=== PATIENT | female | born 1980 | race Hispanic/Latino ===

== ENCOUNTER 2020-10-13 10:04 | Day surgery (SDC) | payer BC ==
[2020-10-12 16:37] LABS: BASOPHILS % (AUTO) 0.6 % (0.0-5.0); EOSINOPHILS % (AUTO) 1.3 % (0.0-8.0); HEMATOCRIT 36.6 % (36-48); LYMPHOCYTES % (AUTO) 39.7 % (21.0-51.0); MEAN CORPUSCULAR HEMOGLOBIN 28.5 pg (27.0-33.0); MEAN CORPUSCULAR HGB CONC 32.8 g/dL (32.0-36.0); MEAN CORPUSCULAR VOLUME 86.9 fL (79-99); MONOCYTES % (AUTO) 7.3 % (3.0-13.0); NEUTROPHILS % (AUTO) 50.8 % (40.0-77.0); PLATELET COUNT (AUTO) 323 K/uL (130-400); RED BLOOD CELL COUNT(AUTO) 4.21 MIL/uL (4.00-5.50); RED CELL DISTRIBUTION WIDTH 15.1 % (11.0-15.5); WHITE BLOOD COUNT (AUTO) 6.9 K/uL (4.8-10.8)
[~2020-10-13] VITALS: Ht 154.9 cm; Wt 69.0 kg
[2020-10-13] VITALS (16 sets, daily range): BP systolic 109–131; BP diastolic 66–90
[2020-10-13] MEDS ORDERED: CALDOLOR 800MG+NS 250ML 250 ML IV ONE (10:12)
[2020-10-13] MEDS ORDERED: LACTATED RINGERS 1000ML 1,000 ML IV ONE (10:13)
[2020-10-13] MEDS ORDERED: CEFAZOLIN SODIUM 1 GM VIAL ONE (10:16)
[2020-10-13] MEDS ORDERED: SUCCINYLCHOLINE CHLORIDE 20 MG/ML 10 ML VIAL ONE (11:17)
[2020-10-13] MEDS ORDERED: LIDOCAINE PF 100MG/5ML (2%) SYRINGE 5ML ONE (11:17)
[2020-10-13] MEDS ORDERED: PROPOFOL 10 MG/ML 20ML VIAL IV ONE (11:18)
[2020-10-13] MEDS ORDERED: MIDAZOLAM HCL 1 MG/ML 2ML VIAL ONE (11:18)
[2020-10-13] MEDS ORDERED: NEOSTIGMINE 5MG/5ML SYR IV ONE (11:18)
[2020-10-13] MEDS ORDERED: GLYCOPYRROLATE 1 MG/5 ML SYRINGE ONE (11:18)
[2020-10-13] MEDS ORDERED: ROCURONIUM 10MG/1ML SYR 10 MG/ML ML ONE (11:18)
[2020-10-13] MEDS ORDERED: DEXAMETHASONE SOD PHOSPHATE 10MG/ML 1ML VIAL ONE (11:18)
[2020-10-13] MEDS ORDERED: ONDANSETRON HCL 4 MG/2 ML VIAL ONE (11:18)
[2020-10-13] MEDS ORDERED: FENTANYL CITRATE PF 50 MCG/1 ML 2ML VIAL ONE ×2 (11:19→11:50)
[2020-10-13] MEDS ORDERED: NALOXONE HCL 0.4 MG/1 ML ML ONE (11:58)
== END 2020-10-13 13:50 | disposition home or self-care (01) ==
LOC: DAH 10:04
PROVIDERS: ATTEND Obstetrics & Gynecology
DX: N92.0 Excessive and frequent menstruation with regular cycle (principal); Z20.822 Contact with and (suspected) exposure to COVID-19; N81.4 Uterovaginal prolapse, unspecified; G43.909 Migraine, unspecified, not intractable, without status migrainosus; F41.9 Anxiety disorder, unspecified; Z90.49 Acquired absence of other specified parts of digestive tract; Z98.51 Tubal ligation status; Z80.3 Family history of malignant neoplasm of breast; Z83.3 Family history of diabetes mellitus; Z82.49 Family history of ischemic heart disease and other diseases of the circulatory system; Z98.890 Other specified postprocedural states
CPT/HCPCS: 36415; 58563; 85025; 86850; 86900; 86901; 87635; A4215; A4216; A4221; A4222; A4223 ×2; A4351; A4355; A4663; A6260; C9803; J0330; J0690; J1100; J1741; J2001; J2250; J2310; J2405; J2704; J2710; J3010 ×2; J3490; J7030 ×2; J7120